=== PATIENT | male | born 1960 | race Caucasian/White ===

== ENCOUNTER → 2020-10-14 | Outpatient (CLI) | payer OTHER | END | disposition home or self-care (01) | LOC: OIH 13:34 | PROVIDERS: ATTEND Internal Medicine | DX: M79.89 Other specified soft tissue disorders (principal); M19.041 Primary osteoarthritis, right hand; M19.042 Primary osteoarthritis, left hand; M25.742 Osteophyte, left hand; M25.741 Osteophyte, right hand; M19.071 Primary osteoarthritis, right ankle and foot | CPT/HCPCS: 73630 ==